=== PATIENT | male | born 1940 | race Hispanic/Latino ===

== ENCOUNTER 2017-12-20 07:04 | Observation (INO) | payer MEDICARE ==
[2017-12-17 09:07] LABS: BASOPHILS % 0.4 % (0.0-1.0); EOSINOPHILS # (AUTO) 0.3 (0.0-0.4); EOSINOPHILS % 3.7 % (0.0-6.0); HEMATOCRIT 40.1 % (38.2-49.6); LYMPHOCYTES # (AUTO) 1.7 (1.0-3.2); LYMPHOCYTES % 24.8 % (18.0-39.1); MEAN CORPUSCULAR HEMOGLOBIN 30.9 pg (28-32); MEAN CORPUSCULAR HGB CONC 34.9 g/dL (31-35); MEAN CORPUSCULAR VOLUME 88.5 fL (81-99); MONOCYTES # (AUTO) 0.6 (0.2-0.8); MONOCYTES % 8.6 % (4.4-11.3); NEUTROPHILS # (AUTO) 4.3 (2.1-6.9); NEUTROPHILS % 62.2 % (38.7-80.0); PLATELET COUNT 227 x10e3/uL (140-360); RED BLOOD COUNT 4.53 x10e6/uL (4.3-5.7); RED CELL DISTRIBUTION WIDTH 12.5 % (11.7-14.4)
--- NOTE | 2017-12-17 09:37 | Diagnostic Imaging Report ---
PROCEDURE: X-RAY CHEST, TWO VIEWS COMPARISON: None. INDICATIONS: PREOPERATIVE CHEST XRAY FOR KNEE SURGERY FINDINGS: LUNGS: No consolidations or edema. PLEURA: No effusions or pneumothorax. Focal eventration anteriorly of the left hemidiaphragm. HEART \T\ MEDIASTINUM: The heart is within normal size-limits. Tortuous thoracic aorta. BONES \T\ SOFT TISSUES: Extensive deformity and degenerative change involving the right shoulder and humeral head. Spurring of the thoracic spine. CONCLUSION: No acute thoracic abnormality. Lei Lugo D.O. Dictated by: Lei Lugo D.O. on 12/17/2017 at 9:38 Electronically approved by: Lei Lugo D.O. on 12/17/2017 at 9:38
[~2017-12-20] VITALS: Ht 167.6 cm; Wt 81.6 kg
[~2017-12-20 07:04] MED LIST: ASPIR 8181 MG PO; CEFAZOLIN SOD 2 GM/D5W 50ML 50 ML IV ONE; DEXAMETHASONE SOD PHOS 10 MG/1 ML VIAL ONE; DULCOLAX STOOL100 MG PO; FENOFIBRATE160 MG PO; FINASTERIDE5 MG PO; FLOMAX0.4 MG PO; GABAPENTIN 300 MG CAP ONE; LIALDA1.2 GM PO; LISINOPRIL10 MG PO
--- OUTSIDE RECORDS SUMMARY | 2017-12-20 07:06 | XMS REPORT ---
Author Author [facility] Address Unknown Phone Unavailable Care Team Providers Care Skatesman Name Role Phone BHUPINDER VARGAS Unavailable Unavailable Problems This patient has no known problems. Allergies, Adverse Reactions, Alerts This patient has no known allergies or adverse reactions. Medications This patient has no known medications. Results Test Description Test Time Test Comments Text Results Atomic Results Result Comments CHEST 2 VIEWS [place] [address] Patient Name: MCKENNA DILL MR #: [id number] : 1940 Age/Sex: 77/M Req #: [id number] Adm Physician: Ordered by: BHUPINDER VARGAS MD Report #: [id number] Location: OR Room/Bed: Procedure: [id number] DX/CHEST 2 VIEWS Exam Date: 12/17/17 Exam Time: 0910 REPORT STATUS: Signed PROCEDURE: X-RAY CHEST, TWO VIEWS COMPARISON: None. INDICATIONS: PREOPERATIVE CHEST XRAY FOR KNEE SURGERY FINDINGS: LUNGS: No consolidations or edema. PLEURA: No effusions or pneumothorax. Focal eventration anteriorly of the left hemidiaphragm. HEART T MEDIASTINUM: The heart is within normal size- limits. Tortuous thoracic aorta. BONES T SOFT TISSUES: Extensive deformity and degenerative change involving the right shoulder and humeral head. Spurring of the thoracic spine. CONCLUSION: No acute thoracic abnormality. Naseem Lugo D.O. Dictated by: Naseem Lugo D.O. on 12/17/2017 at 9:38 Electronically approved by: Naseem Lugo D.O. on 12/17/2017 at 9:38 Dictated By: NASEEM LUGO DO 7 Transcribed By: MEIR on 12/17/17937 COPY TO: BHUPINDER VARGAS MD
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
[2017-12-20] MEDS ORDERED: CELECOXIB 200 MG CAP ONE (07:09)
[2017-12-20] MEDS ORDERED: ROPIVACAINE 246.25 MG, EPINEPHRINE HCL 1:1000 0.5 MG, CLONIDINE HCL 0.08 MG, KETOROLAC ... INJ ONE ×5 (07:30)
[2017-12-20] MEDS ORDERED: MUPIROCIN 2% OINT 22 GM TUBE ONE (07:44)
[2017-12-20] MEDS ORDERED: BACITRACIN 50,000 UNIT VIAL ONE (07:44)
[2017-12-20] MEDS ORDERED: TRANEXAMIC ACID 1,000 MG/10 ML ML ONE (07:44)
[2017-12-20] MEDS ORDERED: ACETAMINOPHEN 650 MG SUPP PR PRN (10:45)
[2017-12-20] MEDS ORDERED: ZOLPIDEM TARTRATE 5 MG TAB PO PRN (10:45)
[2017-12-20] MEDS ORDERED: DIPHENHYDRAMINE HCL INJ 50 MG/ML VIAL IM/IV PRN (10:45)
[2017-12-20] MEDS ORDERED: KETOROLAC TROMETHAMINE 30 MG/ML VIAL IV PRN (10:45)
[2017-12-20] MEDS ORDERED: DOCUSATE SODIUM 100 MG CAP PO PRN ×2 (10:45→16:15)
[2017-12-20] MEDS ORDERED: PROMETHAZINE HCL (IM) 25 MG/ML VIAL IM PRN (10:45)
[2017-12-20] MEDS ORDERED: HYDROCODONE/APAP 5MG-325MG TAB PO PRN (10:45)
[2017-12-20] MEDS ORDERED: ONDANSETRON HCL INJ 2 MG/ML VIAL IV PRN (10:45)
[2017-12-20] MEDS ORDERED: HYDROCODONE/APAP 7.5MG-325MG 1 EA TAB PO PRN (10:45)
--- NOTE | 2017-12-20 11:49 | Diagnostic Imaging Report ---
PROCEDURE:X-RAY LEFT KNEE, ONE OR TWO VIEWS COMPARISON:None. INDICATIONS:POST OP LEFT KNEE SURGERY TODAY FINDINGS:Status post total left knee arthroplasty with intact prosthesis in adequate anatomic alignment. There is post-operative suprapatellar effusion, soft tissue swelling and gas. Multiple surgical skin denis. No acute fracture-dislocation. No definite intra-osseous lesion. CONCLUSION:Status post total left knee arthroplasty with intact prosthesis in adequate anatomic alignment. Sharmaine Pedraza M.D. Dictated by: Sharmaine Pedraza M.D. on 12/20/2017 at 11:51 Electronically approved by: Sharmaine Pedraza M.D. on 12/20/2017 at 11:51
[2017-12-20] MEDS: ACETAMINOPHEN 1000 MG/100 ML IV SCH ×3 (12:00→23:44)
--- NOTE | 2017-12-20 13:35 | Operative Report ---
DATE OF PROCEDURE: December 20, 2017 SOCIOLOGY INSTRUCTOR: Ramirez Wilkins PA-C The patient was brought to the operating room for induction of anesthesia. Throughout this case, my PA's assistance was necessary for retraction of soft tissue and positioning of the extremity. This allows for efficient and technically successful execution of the operation and is considered medically necessary. PREOPERATIVE DIAGNOSIS: Osteoarthritis, left knee. POSTOPERATIVE DIAGNOSIS: Osteoarthritis, left knee. PROCEDURE: Left total knee arthroplasty. INDICATIONS: The patient is a 77-year-old gentleman with end-stage varus arthritis of his left knee. He has failed conservative management and would like to proceed with a total knee replacement. The risks and benefits of the procedure have been explained. The recovery and hospital stay have been discussed. He states he understands and wishes to proceed. DESCRIPTION OF PROCEDURE: The patient was brought to the operating room and placed under general anesthetic. He received prophylactic antibiotics, tranexamic acid, and a regional block in the holding area. His left lower extremity was prepped and draped in a sterile manner. A preoperative time out was performed. The extremity was exsanguinated and a proximal tourniquet was inflated to 300 mmHg. An anterior incision was made over the left knee. A medial parapatellar arthrotomy was performed and clear synovial fluid was removed from the joint. A more extensive medial release was necessary due to the varus malalignment. The knee was brought up into flexion with the patella everted. The cruciate ligaments were sacrificed. A [employer]al [employer]hew Perla II posterior stabilized knee system was used. Marginal osteophytes and meniscal remnants were excised. Complete loss of the medial cartilage down to polished subchondral bone was noted. An extramedullary cutting guide was used to resect the proximal tibia. A +2 mm cut was performed due to the patient's flexion contracture and limited flexion to 90 degrees. The tibial baseplate was noted to be a size #6. The central fin punch was impacted and attention was directed towards the distal femur. An intramedullary cutting guide was used to resect the distal femur in 6 degrees of valgus and rotation referenced off of a combination of landmarks including [place]'s line, the epicondylar axis, and the posterior condyles. The femoral component was also a size #6. The anterior and posterior cuts were made. Trial reductions were performed. A 9 mm ultra-congruent tibial insert provided optimal soft tissue balancing and full extension and 90 degrees of flexion. The patella was resurfaced with a 32 mm x 9 mm patellar button. The thickness was checked before and after and was noted to be 24 mm each time. Patellar tracking was concentric. The trial implants were then all removed. A 100 mL premixed pericapsular injection was placed into the surrounding soft tissue. The knee was thoroughly irrigated with a shower-tip pulsatile lavage. The components were cemented into place using a single mix of PALACOS cement preloaded with antibiotics. Care was taken to remove extravasated cement. The wound was further irrigated with a pulsatile lavage while the cement cured. The arthrotomy was then closed with interrupted #1 Ethibond. The knee was put through flexion and extension to ensure a secure closure. The skin was closed with subcuticular Vicryl and denis. A sterile bandage was applied. The patient was extubated and transported to the recovery room in stable condition. Blood loss was minimal. All needle and sponge counts were correct. Job#: [id number] VAS
[2017-12-20] MEDS ORDERED: CEFAZOLIN SOD 1 GM/NS 50ML 50 ML IV SCH (14:00)
[2017-12-20 16:00] VITALS: BP 139/65
[2017-12-20 16:05] VITALS: BP 139/65
[2017-12-20] MEDS: CEFAZOLIN SOD 1 GM VIAL IV SCH ×2 (16:30→23:30)
[2017-12-20] MEDS: CELECOXIB 200 MG CAP PO SCH (16:30)
[2017-12-20] MEDS: ASPIRIN 325 MG TAB PO SCH (16:30)
[2017-12-20 16:44] VITALS: BP 139/65
[2017-12-20] MEDS: MESALAMINE 1.2 GM PO SCH (17:00)
[2017-12-20] MEDS ORDERED: LIDOCAINE HCL 2% JELLY 5 ML TUBE ONE (17:36)
[2017-12-20] MEDS ORDERED: DEXAMETHASONE SOD PHOS INJ 4 MG/ML VIAL ONE (17:36)
[2017-12-20] MEDS ORDERED: ONDANSETRON HCL INJ 2 MG/ML VIAL ONE (17:36)
[2017-12-20] MEDS ORDERED: PROPOFOL IV EMULSION 10 MG/ML 20 ML VIAL ONE (17:36)
[2017-12-20] MEDS ORDERED: SEVOFLURANE INHAL SOLN 250 ML PEN BTL ONE (17:36)
[2017-12-20] MEDS ORDERED: LIDOCAINE HCL 2% LOCAL INJ 5 ML SDV VIAL INJ ONE (17:36)
[2017-12-20] MEDS ORDERED: LIDOCAINE 2%/ EPINEPHRINE 20ML MDV ONE (17:42)
[2017-12-20] MEDS ORDERED: LIDOCAINE 2% /EPINEPHRINE 20 ML SDV INJ ONE (17:42)
[2017-12-20] MEDS ORDERED: MIDAZOLAM HCL 2 MG/2 ML VIAL ONE (17:46)
[2017-12-20] MEDS ORDERED: FENTANYL CITRATE/PF 100MCG/2 ML INJ ONE (17:46)
[2017-12-20 20:47] VITALS: BP 127/58
[2017-12-20] MEDS ORDERED: LISINOPRIL 10 MG TAB PO SCH (21:00)
[2017-12-21] VITALS: BP 121/61
[2017-12-21 04:00] VITALS: BP 122/58
[2017-12-21] MEDS: ACETAMINOPHEN 1000 MG/100 ML IV SCH (05:24)
[2017-12-21] MEDS: CEFAZOLIN SOD 1 GM VIAL IV SCH ×2 (06:31→14:00)
[2017-12-21 07:11] LABS: HEMATOCRIT 33.8 % (38.2-49.6); HEMOGLOBIN 11.9 g/dL (14.0-18.0)
[2017-12-21 07:31] VITALS: BP 122/58
[2017-12-21 07:50] VITALS: BP 127/58
[2017-12-21] MEDS: ASPIRIN 325 MG TAB PO SCH (07:55)
[2017-12-21] MEDS: CELECOXIB 200 MG CAP PO SCH (07:55)
[2017-12-21] MEDS: MESALAMINE 1.2 GM PO SCH (07:55)
[2017-12-21] MEDS ORDERED: FINASTERIDE 5 MG TAB PO SCH (09:00)
[2017-12-21] MEDS ORDERED: NON-FORMULARY MEDICATION (Fenofibrate 160 MG) PO SCH (09:00)
[2017-12-21] MEDS ORDERED: TAMSULOSIN HCL 0.4 MG CAP PO SCH (09:00)
[2017-12-21] MEDS ORDERED: FENOFIBRATE 145 MG TAB PO SCH (09:00)
[2017-12-21] MEDS ORDERED: ACETAMINOPHEN 1000 MG/100 ML IV PRN (10:45)
[2017-12-21] MEDS ORDERED: HYDROCODONE/APAP 7.5MG-325MG 1 EA TAB PO PRN (11:30)
[2017-12-21] MEDS ORDERED: ASPIRIN325 MG PO (11:35)
[2017-12-21 11:50] VITALS: BP 151/78
[2017-12-21 15:37] VITALS: BP 156/67
== END 2017-12-21 16:17 | disposition home health service (06) ==
LOC: OR 07:04 → MED/SURG 10:38
PROVIDERS: ADMIT Specialist; ATTEND Specialist
PROC: 0SRD0J9 Replacement of Left Knee Joint with Synthetic Substitute, Cemented, Open Approach (ICD-10-PCS; principal; 2017-12-20 09:00)
DX: M17.12 Unilateral primary osteoarthritis, left knee (principal); I10 Essential (primary) hypertension; E78.00 Pure hypercholesterolemia, unspecified; N40.0 Benign prostatic hyperplasia without lower urinary tract symptoms; D64.9 Anemia, unspecified
CPT/HCPCS: 27447; 36415 ×2; 71046; 73560; 85014; 85018; 85025; 86850; 86900; 86920; 97110; 97116; 97139; 97161; 97530; C1713; G0378 ×2; G8978; G8979; J0171; J0690 ×2; J1100 ×2; J1885; J2001 ×4; J2250; J2405; J2795

== ENCOUNTER 2018-02-15 07:53 | Outpatient (RCR) | payer MEDICARE ==
[~2018-02-15 07:53] MED LIST changes: +ASPIRIN325 MG PO; -CEFAZOLIN SOD 2 GM/D5W 50ML 50 ML IV ONE; -DEXAMETHASONE SOD PHOS 10 MG/1 ML VIAL ONE; -GABAPENTIN 300 MG CAP ONE
== END 2018-02-19 ==
LOC: PT 07:53
PROVIDERS: ATTEND Specialist
DX: Z96.652 Presence of left artificial knee joint (principal); Z47.1 Aftercare following joint replacement surgery; M25.562 Pain in left knee; M25.662 Stiffness of left knee, not elsewhere classified; M62.81 Muscle weakness (generalized); R26.2 Difficulty in walking, not elsewhere classified
CPT/HCPCS: 97010 ×2; 97110 ×4; 97140; 97161; G8978; G8979

== ENCOUNTER 2021-12-02 15:37 | Emergency (ER) | payer MEDICARE ==
[~2021-12-02] VITALS: Ht 167.6 cm; Wt 81.6 kg
[~2021-12-02 15:37] MED LIST changes: +ASPIRIN81 MG PO; +ATORVASTATIN CA10 MG PO; +OMEPRAZOLE40 MG PO
== END 2021-12-02 19:06 | disposition home or self-care (01) ==
LOC: ER 15:40
DX: R60.9 Edema, unspecified (principal); Z96.651 Presence of right artificial knee joint; I10 Essential (primary) hypertension; E78.5 Hyperlipidemia, unspecified; K21.9 Gastro-esophageal reflux disease without esophagitis
CPT/HCPCS: 93971; 99283